=== PATIENT | male | born 1965 | race Caucasian/White ===

== ENCOUNTER 2020-11-15 12:05 | Observation (INO) ==
[2020-11-15] MEDS ORDERED: ONDANSETRON INJ 2 MG/ML 2 ML VIAL IV STA (12:41)
[2020-11-15] MEDS ORDERED: SODIUM CHLORIDE 0.9% 1000ML 1,000 ML IV STA (12:41)
[2020-11-15] MEDS ORDERED: MoRPHine SULFATE 4 MG/ML 1 ML CARP\\VIAL IV STA (12:41)
--- NOTE | 2020-11-15 12:46 | Emergency Department Note ---
Impression & Plan Acute appendicitis ED Provider Note CHIEF COMPLAINT: Right-sided abdominal pain HISTORY OF PRESENTING ILLNESS: This is a 55-year-old male who presents to the emergency department by private vehicle with complaint of right lower abdominal pain that started yesterday and has gotten progressively worse. Patient states the pain feels like a dull ache, is constant, worse with movement and better with rest, and he rates the pain 8/10. He tried taking Pepcid AC last night but that did not help his symptoms. He has not tried anything else for the pain. Patient has had some associated nausea and a poor appetite, but has not vomited. He last ate solid food yesterday around dinnertime, he has only had a few sips of Gatorade today. He denies any fevers or chills. He has not had any diar mily, constipation, bloody or black stools and denies any urinary complaints. He denies any history of abdominal surgeries in the past. He denies any chest pain, chest tightness, shortness of breath, palpitations, dizziness or syncope, back pain. REVIEW OF SYSTEMS: A complete 10 point review of systems was reviewed with the patient with pertinent positives and negatives as per history of present illness. All else were negative. PAST MEDICAL HISTORY: No past medical or surgical history SOCIAL HISTORY: Lives at home, he is a current every day smoker, admits to some alcohol and occasional marijuana ALLERGIES: No known allergies PHYSICAL EXAM: CONSTITUTIONAL: Pleasant and cooperative. Nontoxic-appearing and in no acute distress. Mildly dehydrated, but otherwise well appearing and well nourished. HEENT: Normocephalic, atraumatic. Pharynx normal. Tacky mucous membranes. NECK: Supple, full active range of motion without discomfort. RESPIRATORY: Clear to auscultation bilaterally with no wheezing, crackles, rhonchi or stridor. Equal expansion bilaterally. CARDIOVASCULAR: Regular rate and rhythm with no murmurs, rubs or gallops. Normal peripheral perfusion. No edema. GASTROINTESTINAL: Tender to palpation in the right mid to lower abdomen, slight guarding, but no rebound tenderness. The abdomen is otherwise nontender, soft and nondistended. No palpable masses or HSM. Bowel sounds present in all quadrants. No CVA tenderness bilaterally. MUSCULOSKELETAL: Full range of motion of all joints without discomfort. INTEGUMENTARY: No rash or other significant dermatologic conditions noted. NEUROLOGIC: Alert and oriented X 4 with normal affect. Normal strength and sensation in all 4 extremities. Normal speech. Normal gait observed. ED COURSE AND MEDICAL DECISION MAKING: CC: Patient presenting with complaint of right-sided abdominal pain DIFFERENTIAL DIAGNOSIS: Includes, but not limited to appendicitis, infections, diverticulitis, UTI, small bowel obstruction, mesenteric ischemia, aortic pathology, inflammatory bowel disease, renal colic, PUD, pancreatitis, biliary pathology, hernia, volvulus, constipation, as well as other pathologies. INTERPRETATION OF LABS: Leukocytosis, no anemia, normal platelets, no significant electrolyte abnormalities, normal renal function, mildly elevated total bili, otherwise normal liver enzymes and lipase. MEDICATION RECONCILIATION: I attest that I have personally reviewed the patient's current medication list. INITIAL VITAL SIGNS REVIEW: I reviewed the patient's initial vital signs and interpret them as follows: T: Afebrile; BP: Normotensive; HR: Within normal limits; RR: Within normal limits; Pulse Ox: Within normal limits on room air. MDM SUMMARY: Patient was evaluated at bedside, history and physical exam performed. Patient is alert and oriented, in no acute distress, resting calmly in stretcher. He is afebrile and nontoxic-appearing, but does appear uncomfortable from pain. Abdomen is tender to palpation in the right mid and lower abdomen with slight guarding, but no acute abdomen. Cardiac monitoring: An order was placed for continuous cardiac monitoring. The monitor shows a rate of 92 bpm with normal sinus rhythm. The patient does note that he has been on chronic narcotics for back problems in the past, but states he does not take anything currently. He has had morphine before. Orders were placed labs, UA, IV fluid bolus for hydration, IV morphine for pain, IV Zofran for nausea, CT abdomen/pelvis with IV and oral contrast to evaluate for abdominal pain. Patient discussed with Dr. Torre, who agrees with my assessment, plan, and disposition. Labs and imaging reviewed as above, labs are notable for leukocytosis, no other significant lab abnormalities. No UTI. Nursing staff called me notifying that the patient became very anxious and is complaining of pain all over shortly after receiving the IV morphine. I evaluated the patient at bedside, he states that his "whole body feels like it is in a cramp" and he is also more nauseated and has vomited a few times. I doubt an allergic reaction, given that the patient has received this medication in the past, however I did give the patient IV Benadryl 50 mg as a precaution. The patient was reassessed and monitored closely, and he did report improvement in his symptoms and appears more comfortable. Given the increase in nausea and vomiting, I did change the CT imaging study to IV contrast only. CT imaging was reviewed and notable for severe acute appendicitis with surrounding fluid and suspicious for perforation. There was no abscess seen. I did cover the patient empirically with 4.5 g of IV Zosyn given the suspected perforation. COVID-19 testing was ordered. I spoke on the phone with Miguel Aviles PA-C with general surgery, who agrees to evaluate the patient and he will most likely go to the OR. Patient reassessed multiple times throughout ED stay, he has remained hemodynamically stable and afebrile, he continues to appear comfortable and notes that his pain is significantly improved. The patient was updated on all results and plan for surgery, all questions were answered to the best of my ability and the patient was agreeable to this plan. The patient was stable at time of admission for surgery. The chart was completed utilizing [employer] Speech voice recognition software. Grammatical errors, random word insertions, pronoun errors, and incomplete sentences are an occasional consequence of this system due to software limitations, ambient noise, and hardware issues. Any formal questions or concerns about the content, text, or information contained within the body of this dictation should be directly addressed to the nurse practitioner for clarification. Past Med/Surg History Medical History (Updated 11/15/20 @ 15:38 by Matteo Price DO, FACS) Acute appendicitis with localized peritonitis Bulging disc LUMBAR SPINE Hx of colonic polyp Surgical History History of colonoscopy History of tooth extraction Family History Mother Family history of diabetes mellitus Denies family history of Ovarian cancer Prostate cancer Myocardial infarction Breast cancer Colorectal cancer Social History Smoking Status: Former smoker Second Hand Exposure: No; Hx Alcohol Use: Yes Alcohol type: hard liquor Hx Substance Use: Yes Last Used Substance Other:: LAST USED LAST WEEKEND (ADVISED) Preferred Language: Swedish Visual Impairment: No Limitations Hearing Ability: Normal [employer] Director Required: No Beliefs That Will Affect Care: None marital status: Current Living Situation: Spouse current occupational status: employed Feels Safe at Home: Yes Dental Care, Regularly: Yes Physical Activity Frequency: 1-2 Times per Week Seatbelt Use: always Assistive Devices: Glasses Allergies Allergies Allergy/AdvReac Type Severity Reaction Status Date / Time No Known Allergies Allergy Verified 11/15/20 08:17 Home Meds Home Medications Medication Instructions Recorded Confirmed Herbal Pill 1 tab PO DAILY 11/15/20 11/15/20 Results & Data (ED) Vital Signs Vital Signs - 24 hr 11/15/20 12:08 11/15/20 12:47 11/15/20 13:00 Temperature 36.8 C Temperature Source Temporal Artery Scan Pulse Rate 94 H 63 92 H Pulse Rate from SpO2 Sensor 91 H 89 Pulse Rhythm Respiratory Rate 18 22 20 Blood Pressure 107/74 127/78 127/74 Blood Pressure Mean 85 94 91 Pulse Oximetry 95 93 94 Oxygen Delivery Method Room Air Sepsis Recent Fever Within 48 Hours No Sepsis New/Unexplained Change in Mental Status N/A Sepsis Action Taken by Nursing No Action Required 11/15/20 13:01 11/15/20 13:30 11/15/20 14:00 Temperature Temperature Source Pulse Rate 90 113 H 106 H Pulse Rate from SpO2 Sensor Pulse Rhythm Regular Respiratory Rate 20 33 H 29 H Blood Pressure 127/83 105/72 Blood Pressure Mean 97 83 Pulse Oximetry 94 Oxygen Delivery Method Room Air Sepsis Recent Fever Within 48 Hours Sepsis New/Unexplained Change in Mental Status Sepsis Action Taken by Nursing 11/15/20 14:30 11/15/20 15:00 11/15/20 15:30 Temperature Temperature Source Pulse Rate 100 H 100 H Pulse Rate from SpO2 Sensor 100 H 101 H Pulse Rhythm Respiratory Rate 37 H 27 H Blood Pressure 132/70 127/73 120/72 Blood Pressure Mean 90 91 88 Pulse Oximetry 91 93 Oxygen Delivery Method Sepsis Recent Fever Within 48 Hours Sepsis New/Unexplained Change in Mental Status Sepsis Action Taken by Nursing Laboratory Data Result diagrams: 11/15/20 12:48 11/15/20 12:48 Lab Results 11/15/20 11/15/20 11/15/20 Range/Units 12:48 12:48 14:53 WBC 15.69 H (4.8-10.8) K/uL RBC 4.80 (4.7-6.1) M/uL Hgb 15.6 (14.0-18.0) g/dL Hct 44.6 (42-52) % MCV 92.9 (80-100) fL MCH 32.5 (25-34) pg MCHC 35.0 (32-36) g/dL RDW Std Deviation 46.1 (36.4-46.3) fL RDW Coeff of Jeuss 13.5 (11.5-14.5) % Plt Count 289 (130-400) K/uL MPV 9.4 (7.4-10.4) fL Immature Gran % (Auto) 0.2 % Neut % (Auto) 84.4 % Lymph % (Auto) 7.6 % Otero % (Auto) 7.5 % Eos % (Auto) 0.2 % Baso % (Auto) 0.1 % Neut # (Auto) 13.25 H (1.4-6.5) K/uL Lymph # (Auto) 1.19 L (1.2-3.4) K/uL Otero # (Auto) 1.17 H (0.11-0.59) K/uL Eos # (Auto) 0.03 (0-0.5) K/uL Baso # (Auto) 0.02 (0-0.2) K/uL Immature Gran # (Auto) 0.03 H (0.00-0.02) K/uL Sodium 136 (136-145) mmol/L Potassium 3.9 (3.5-5.1) mmol/L Chloride 104 (98-107) mmol/L Carbon Dioxide 25 (21-32) mmol/L Anion Gap 7.0 (3-11) BUN 14 (7-18) mg/dl Creatinine 0.88 (0.6-1.4) mg/dl Est Cr Clr Drug Dosing 79.5 ml/min Est GFR ( Amer) 111.3 ml/min Est GFR (Non-Af Amer) 96.0 ml/min BUN/Creatinine Ratio 16.2 (10-20) Glucose 120 H (70-99) mg/dl Calcium 9.3 (8.5-10.1) mg/dl Total Bilirubin 1.2 H (0.2-1) mg/dl AST 6 L (15-37) U/L ALT 20 (12-78) U/L Alkaline Phosphatase 62 (45-117) U/L Total Protein 7.5 (6.4-8.2) gm/dl Albumin 3.7 (3.4-5.0) gm/dl Globulin 3.8 (2.5-4.0) gm/dl Albumin/Globulin Ratio 1.0 (0.9-2) Lipase 73 (73-393) U/L COVID-19 Eval Order Covid19 at [facility] Administered Medications Discontinued Medications Diphenhydramine HCl (Diphenhydramine 50 Mg/Ml Vial) Confirm Administered Dose 50 mg .ROUTE .STK-MED ONE Stop: 11/15/20 13:19 Last Admin: 11/15/20 13:20 Dose: 50 mg Documented by: [id number] Diphenhydramine HCl (Diphenhydramine 50 Mg/Ml Vial) 50 mg IV NOW STA Stop: 11/15/20 13:37 Last Admin: 11/15/20 13:40 Dose: Not Given Documented by: [id number] Sodium Chloride (Nss 1000ml) 1,000 mls @ 999 mls/hr IV .Q1H1M STA Stop: 11/15/20 13:41 Last Infusion: 11/15/20 14:49 Dose: 0 mls/hr Documented by: [id number] Admin: 11/15/20 12:57 Dose: 999 mls/hr Documented by: [id number] Piperacillin Sod/Tazobactam Sod (Zosyn) 4.5 gm in 120 mls @ 240 mls/hr IV NOW ONE Stop: 11/15/20 15:07 Last Admin: 11/15/20 14:47 Dose: 240 mls/hr Documented by: [id number] Ioversol (Optiray 320 100ml) 90 ml IV ONCE ONE Stop: 11/15/20 14:09 Last Admin: 11/15/20 14:08 Dose: 90 ml Documented by: [id number] Morphine Sulfate (Morphine Sulfate 4 Mg/Ml 1 Ml Carp\\Vial) 4 mg IV NOW STA Stop: 11/15/20 12:42 Last Admin: 11/15/20 12:59 Dose: 4 mg Documented by: [id number] Ondansetron HCl (Ondansetron Inj 2 Mg/Ml 2 Ml Vial) 4 mg IV NOW STA Stop: 11/15/20 12:42 Last Admin: 11/15/20 12:58 Dose: 4 mg Documented by: [id number] Imaging Data Radiologist's Impression: Abdomen/Pelvis CT 11/15/20 13:36 CT SCAN OF THE ABDOMEN AND PELVIS WITH IV CONTRAST CLINICAL HISTORY: Right lower quadrant abdominal pain. COMPARISON STUDY: Ultrasound of the right lower quadrant performed the same day 11/15/2020. TECHNIQUE: Following the IV administration of 90 cc of Optiray 320, CT scan of the abdomen and pelvis is performed from the lung bases to the proximal femora. Images are reviewed in the axial, sagittal, and coronal planes. IV contrast was administered without complication. A dose lowering technique was utilized adhering to the principles of ALARA. CT DOSE: 272.10 mGy.cm FINDINGS: Lung bases: The heart is normal in size and without pericardial effusion. The lung bases are clear noting dependent atelectasis. Liver: The contrast-enhanced liver is normal in size, contour, and attenuation. There is no intrahepatic biliary ductal dilatation. The hepatic veins and portal veins are patent. Gallbladder: Unremarkable. Spleen: Normal in size and attenuation. Pancreas: Unremarkable. Adrenal glands: Unremarkable. Kidneys: The contrast enhanced kidneys are normal in size and without hydronephrosis. The kidneys enhance symmetrically. 8 retroverted left renal vein is incidentally noted. A 9 mm cyst is noted in the left lower pole. Abdominal vasculature: The abdominal aorta is normal in course and caliber noting mild atherosclerotic calcification. Bowel: There is mild colonic fecal retention. No bowel obstruction is seen. There are scattered colonic diverticula without CT evidence of acute diverticul itis. The appendix is retrocecal in location. There are large calcified appendicoliths seen on images #221, #226, and #242. The appendix is dilated and fluid-filled measuring up to 1.5 cm in diameter. There are significant surrounding periappendiceal inflammation and fluid, and the appearance is co nsistent with severe acute appendicitis. Apparent discontinuity of the posterior wall of the appendix suggests perforation. No organized fluid collection is seen to suggest abscess. Peritoneum: Free fluid is seen in the right lower quadrant and tracking along the right paracolic gutter. No intraperitoneal free air is identified. Lymphadenopathy: None. Pelvic viscera: The prostate gland is mildly enlarged noting median lobe hypertrophy. The bladder and seminal vesicles are normal as imaged. Skeletal structures: There is mild lumbosacral spondylosis. No lytic or blastic lesions are seen. IMPRESSION: 1. Findings are consistent with severe acute appendicitis with surrounding fluid. 2. Suspect perforation. No organized/drainable fluid collection identified to indicate abscess. 3. Additional findings as above. ACT 112: Negative or not required by law. Electronically signed by: Yan Oahra M.D. 11/15/2020 2:21 PM Discharge Plan Visit Data Chief Complaint: Abdominal Pain Stated Complaint: STOMACH PAIN ED Provider: Yan Torre ED Midlevel Provider: Natalia Reese Discharge Problem: Acute appendicitis Patient Disposition: Admitted As Inpatient Condition: Good Forms Stand Alone Forms: [employer] Prescriptions Prescriptions: No Action Herbal Pill 1 tab PO DAILY RF: 0 Referrals Referrals: PCP,NO [Primary Care Provider] - Discharge Problem: Acute appendicitis Qualifiers: Acute appendicitis type: with localized peritonitis Appendicitis perforation presence: with perforation Appendicitis abscess presence: without abscess
[2020-11-15 13:11] LABS: Basophils # (auto) 0.02 K/uL (0-0.2); Basophils % (auto) 0.1 %; Eosinophils # (auto) 0.03 K/uL (0-0.5); Eosinophils % (auto) 0.2 %; Hematocrit (blood only) 44.6 % (42-52); Hemoglobin 15.6 g/dL (14.0-18.0); Immature Granulocytes # (auto) 0.03 K/uL (0.00-0.02); Immature Granulocytes % (auto) 0.2 %; Lymphocytes # (auto) 1.19 K/uL (1.2-3.4); Lymphocytes % (auto) 7.6 %; Mean Corpuscular Hemoglobin 32.5 pg (25-34); Mean Corpuscular Volume 92.9 fL (80-100); Mean Platelet Volume 9.4 fL (7.4-10.4); Monocytes # (auto) 1.17 K/uL (0.11-0.59); Monocytes % (auto) 7.5 %; Neutrophils # (auto) 13.25 K/uL (1.4-6.5); Neutrophils % (auto) 84.4 %; Platelet Count 289 K/uL (130-400); RDW Coefficient of Variation 13.5 % (11.5-14.5); RDW Standard Deviation 46.1 fL (36.4-46.3); White Blood Count 15.69 K/uL (4.8-10.8)
[2020-11-15] MEDS ORDERED: diphenhydrAMINE 50 MG/ML VIAL ONE (13:18)
[2020-11-15 13:34] LABS: Albumin Level 3.7 gm/dl (3.4-5.0); BUN Creatinine Ratio 16.2 (10-20); Bilirubin,Total 1.2 mg/dl (0.2-1); Calcium 9.3 mg/dl (8.5-10.1); Creatinine Clr Calc Pharmacy 79.5 ml/min; Est GFR (African American) 111.3 ml/min; Globulin 3.8 gm/dl (2.5-4.0); Potassium 3.9 mmol/L (3.5-5.1); Total Protein 7.5 gm/dl (6.4-8.2)
[2020-11-15] MEDS ORDERED: diphenhydrAMINE 50 MG/ML VIAL IV STA (13:36)
[2020-11-15] MEDS ORDERED: OPTIRAY 320 100ml IV ONE (14:08)
--- NOTE | 2020-11-15 14:23 | CT Scan Report ---
CT SCAN OF THE ABDOMEN AND PELVIS WITH IV CONTRAST CLINICAL HISTORY: Right lower quadrant abdominal pain. COMPARISON STUDY: Ultrasound of the right lower quadrant performed the same day 11/15/2020. TECHNIQUE: Following the IV administration of 90 cc of Optiray 320, CT scan of the abdomen and pelvi s is performed from the lung bases to the proximal femora. Images are reviewed in the axial, sagittal , and coronal planes. IV contrast was administered without complication. A dose lowering technique wa s utilized adhering to the principles of ALARA. CT DOSE: 272.10 mGy.cm FINDINGS: Lung bases: The heart is normal in size and without pericardial effusion. The lung bases are clear no ting dependent atelectasis. Liver: The contrast-enhanced liver is normal in size, contour, and attenuation. There is no intrahepa tic biliary ductal dilatation. The hepatic veins and portal veins are patent. Gallbladder: Unremarkable. Spleen: Normal in size and attenuation. Pancreas: Unremarkable. Adrenal glands: Unremarkable. Kidneys: The contrast enhanced kidneys are normal in size and without hydronephrosis. The kidneys enh ance symmetrically. 8 retroverted left renal vein is incidentally noted. A 9 mm cyst is noted in the left lower pole. Abdominal vasculature: The abdominal aorta is normal in course and caliber noting mild atheroscleroti c calcification. Bowel: There is mild colonic fecal retention. No bowel obstruction is seen. There are scattered colon ic diverticula without CT evidence of acute diverticulitis. The appendix is retrocecal in location. There are large calcified appendicoliths seen on images #221, #226, and #242. The appendix is dilated and fluid-filled measuring up to 1.5 cm in diameter. There are significant surrounding periappendice al inflammation and fluid, and the appearance is consistent with severe acute appendicitis. Apparent discontinuity of the posterior wall of the appendix suggests perforation. No organized fluid collecti on is seen to suggest abscess. Peritoneum: Free fluid is seen in the right lower quadrant and tracking along the right paracolic gut ter. No intraperitoneal free air is identified. Lymphadenopathy: None. Pelvic viscera: The prostate gland is mildly enlarged noting median lobe hypertrophy. The bladder and seminal vesicles are normal as imaged. Skeletal structures: There is mild lumbosacral spondylosis. No lytic or blastic lesions are seen. IMPRESSION: 1. Findings are consistent with severe acute appendicitis with surrounding fluid. 2. Suspect perforation. No organized/drainable fluid collection identified to indicate abscess. 3. Additional findings as above. ACT 112: Negative or not required by law. Electronically signed by: Yan Ohara M.D. 11/15/2020 2:21 PM
[2020-11-15] MEDS ORDERED: PIPERACILL/TAZOBAC CONSULT ACTIVE PRN ×2 (14:38→18:36)
[2020-11-15] MEDS ORDERED: PIPERACILLIN/TAZOBACTAM 4.5 GM/120 ML BAG IV ONE (14:38)
--- NOTE | 2020-11-15 15:18 | Anesthesiology Consultation ---
Date of Service November 15, 2020 Assessment & Plan (1) Encounter for pre-operative examination: Chart Review Chart Review: Acceptable Risk for Surgery History Surgery Operation Date: 11/15/20 10:50 Proposed Procedures p Laparoscopic Appendectomy - Matteo Price DO, FACS Height/Weight Height: 5 ft 7 in Weight: 60 kg Allergies Allergy/AdvReac Type Severity Reaction Status Date / Time No Known Allergies Allergy Verified 11/15/20 08:17 Medications Home Medications Medication Instructions Recorded Confirmed Last Taken Herbal Pill 1 tab PO DAILY 11/15/20 11/15/20 Unknown Past Medical History Medical History Bulging disc LUMBAR SPINE Hx of colonic polyp Past Family History Family History Mother Family history of diabetes mellitus Denies family history of Ovarian cancer Prostate cancer Myocardial infarction Breast cancer Colorectal cancer Past Surgical History Surgical History History of colonoscopy History of tooth extraction Social History Smoking Status: Former smoker tobacco type: cigarettes Hx Alcohol Use: Yes Alcohol type: hard liquor alcohol intake frequency: a few times a month Hx Substance Use: Yes substance use type: marijuana Last Used Substance Other:: LAST USED LAST WEEKEND (ADVISED) Physical Exam Vital Signs Last Vital Signs Temp 36.8 C 11/15/20 12:08 Pulse 106 H 11/15/20 14:00 Resp 29 H 11/15/20 14:00 BP 105/72 11/15/20 14:00 Pulse Ox 94 11/15/20 13:01 Testing Laboratory Results 11/15/20 12:48 11/15/20 12:48
--- NOTE | 2020-11-15 15:42 | History & Physical Report ---
Date of Service November 15, 2020 Assessment & Plan (1) Acute appendicitis with localized peritonitis: Plan: acute appendicitis, possible early perforation Plan for laparoscopic appendectomy, possible open the risks of the procedure were discussed to include bleeding, infection, open surgery, normal appendix, damage to surrounding structures, need for future or more extensive surgery, abscess, and risks of anesthesia pre op abx ordered admit for overnight obs post op, hopeful for discharge tomorrow History of Present Illness Chief Complaint: abd pain Primary Care Provider: NO PCP 55 year old male presented with 24 hours of rlq abdominal pain. Started yesterday and got worse. Some nausea, + anorexia. Last food yesterday, some gatorade this morning. Had similar pain several years ago that went away on own but not this bad. No prior surgery, colonoscopy with benign polyps in past. No blood thinners, no other meds. Allergies Allergy/AdvReac Type Severity Reaction Status Date / Time No Known Allergies Allergy Verified 11/15/20 08:17 Home Medications Medication Instructions Recorded Confirmed Type Herbal Pill 1 tab PO DAILY 11/15/20 11/15/20 History Past Med/Surg History Medical History (Updated 11/15/20 @ 15:38 by Matteo Price DO, FACS) Acute appendicitis with localized peritonitis Bulging disc LUMBAR SPINE Hx of colonic polyp Surgical History History of colonoscopy History of tooth extraction Family History Mother Family history of diabetes mellitus Denies family history of Ovarian cancer Prostate cancer Myocardial infarction Breast cancer Colorectal cancer Social History Smoking Status: Former smoker Second Hand Exposure: No; Hx Alcohol Use: Yes Alcohol type: hard liquor Hx Substance Use: Yes Last Used Substance Other:: LAST USED LAST WEEKEND (ADVISED) Preferred Language: Nigerian Visual Impairment: No Limitations Hearing Ability: Normal Child Welfare Director Required: No Beliefs That Will Affect Care: None marital status: Current Living Situation: Spouse current occupational status: employed Feels Safe at Home: Yes Dental Care, Regularly: Yes Physical Activity Frequency: 1-2 Times per Week Seatbelt Use: always Assistive Devices: Glasses Review of Systems Review of Systems: All systems reviewed & are unremarkable except as noted in HPI & below Physical Exam Constitutional: WD/WN, vitals as above Respiratory: normal respiratory effort, lungs clear to auscultation Cardiovascular: RRR, no murmur, no edema Gastrointestinal (Abdomen): Percussion/Palpation: + abdomen tender (RLQ), + guarding (RLQ localized) and abdomen soft; abdomen not rigid, no hepatosplenomegaly and no hernia Results & Data Results & Data ([facility]) Vital Signs (Past 12 Hours) Vital Signs Temp Pulse Resp BP Pulse Ox 11/15/20 14:00 106 H 29 H 105/72 11/15/20 13:30 113 H 33 H 127/83 11/15/20 13:01 90 20 94 11/15/20 13:00 92 H 20 127/74 94 11/15/20 12:47 63 22 127/78 93 11/15/20 12:08 36.8 C 94 H 18 107/74 95 Laboratory Results Laboratory Results - last 24 hr 11/15/20 11/15/20 11/15/20 12:48 12:48 14:53 WBC 15.69 H RBC 4.80 Hgb 15.6 Hct 44.6 MCV 92.9 MCH 32.5 MCHC 35.0 RDW Std Deviation 46.1 RDW Coeff of Jesus 13.5 Plt Count 289 MPV 9.4 Immature Gran % (Auto) 0.2 Neut % (Auto) 84.4 Lymph % (Auto) 7.6 Pickett % (Auto) 7.5 Eos % (Auto) 0.2 Baso % (Auto) 0.1 Neut # (Auto) 13.25 H Lymph # (Auto) 1.19 L Pickett # (Auto) 1.17 H Eos # (Auto) 0.03 Baso # (Auto) 0.02 Immature Gran # (Auto) 0.03 H Sodium 136 Potassium 3.9 Chloride 104 Carbon Dioxide 25 Anion Gap 7.0 BUN 14 Creatinine 0.88 Est Cr Clr Drug Dosing 79.5 Est GFR ( Amer) 111.3 Est GFR (Non-Af Amer) 96.0 BUN/Creatinine Ratio 16.2 Glucose 120 H Calcium 9.3 Total Bilirubin 1.2 H AST 6 L ALT 20 Alkaline Phosphatase 62 Total Protein 7.5 Albumin 3.7 Globulin 3.8 Albumin/Globulin Ratio 1.0 Lipase 73 COVID-19 Eval Order Covid19 at [facility] SARS-CoV-2 (PCR) 11/15/20 14:53 WBC RBC Hgb Hct MCV MCH MCHC RDW Std Deviation RDW Coeff of Jesus Plt Count MPV Immature Gran % (Auto) Neut % (Auto) Lymph % (Auto) Pickett % (Auto) Eos % (Auto) Baso % (Auto) Neut # (Auto) Lymph # (Auto) Pickett # (Auto) Eos # (Auto) Baso # (Auto) Immature Gran # (Auto) Sodium Potassium Chloride Carbon Dioxide Anion Gap BUN Creatinine Est Cr Clr Drug Dosing Est GFR ( Amer) Est GFR (Non-Af Amer) BUN/Creatinine Ratio Glucose Calcium Total Bilirubin AST ALT Alkaline Phosphatase Total Protein Albumin Globulin Albumin/Globulin Ratio Lipase COVID-19 Eval Order SARS-CoV-2 (PCR) Pending Diagnostic Findings I personally reviewed the CT and agree with read of acute appendicitis, though perforation is questionable. CT SCAN OF THE ABDOMEN AND PELVIS WITH IV CONTRAST CLINICAL HISTORY: Right lower quadrant abdominal pain. COMPARISON STUDY: Ultrasound of the right lower quadrant performed the same day 11/15/2020. TECHNIQUE: Following the IV administration of 90 cc of Optiray 320, CT scan of the abdomen and pelvis is performed from the lung bases to the proximal femora. Images are reviewed in the axial, sagittal, and coronal planes. IV contrast was administered without complication. A dose lowering technique was utilized adhering to the principles of ALARA. CT DOSE: 272.10 mGy.cm FINDINGS: Lung bases: The heart is normal in size and without pericardial effusion. The lung bases are clear noting dependent atelectasis. Liver: The contrast-enhanced liver is normal in size, contour, and attenuation. There is no intrahepatic biliary ductal dilatation. The hepatic veins and portal veins are patent. Gallbladder: Unremarkable. Spleen: Normal in size and attenuation. Pancreas: Unremarkable. Adrenal glands: Unremarkable. Kidneys: The contrast enhanced kidneys are normal in size and without hydronephrosis. The kidneys enhance symmetrically. 8 retroverted left renal vein is incidentally noted. A 9 mm cyst is noted in the left lower pole. Abdominal vasculature: The abdominal aorta is normal in course and caliber noting mild atherosclerotic calcification. Bowel: There is mild colonic fecal retention. No bowel obstruction is seen. There are scattered colonic diverticula without CT evidence of acute diverticulitis. The appendix is retrocecal in location. There are large calcified appendicoliths seen on images #221, #226, and #242. The appendix is dilated and fluid-filled measuring up to 1.5 cm in diameter. There are significant surrounding periappendiceal inflammation and fluid, and the appearance is consistent with severe acute appendicitis. Apparent discontinuity of the posterior wall of the appendix suggests perforation. No organized fluid collection is seen to suggest abscess. Peritoneum: Free fluid is seen in the right lower quadrant and tracking along the right paracolic gutter. No intraperitoneal free air is identified. Lymphadenopathy: None. Pelvic viscera: The prostate gland is mildly enlarged noting median lobe hypertrophy. The bladder and seminal vesicles are normal as imaged. Skeletal structures: There is mild lumbosacral spondylosis. No lytic or blastic lesions are seen. IMPRESSION: 1. Findings are consistent with severe acute appendicitis with surrounding fluid. 2. Suspect perforation. No organized/drainable fluid collection identified to indicate abscess. 3. Additional findings as above. PG Care Time/CCT Total # of Minutes Spent Total Time Spent with Patient: Total time spent is greater than 50% in coordination of care (as documented) at patient's floor/unit and/or counseling patient: Coding Level of Care Code INT OBSERVATION CARE 50M LVL 2 Diagnoses Acute appendicitis with localized peritonitis K35.30
[2020-11-15] MEDS ORDERED: BUPIVACAINE 0.5 % 5 MG/1 ML MPF 30ML VIAL ONE (15:56)
[2020-11-15] MEDS ORDERED: ONDANSETRON INJ 2 MG/ML 2 ML VIAL IV PRN ×2 (16:04→18:36)
[2020-11-15] MEDS ORDERED: ATROPINE SULFATE 0.1 MG/ML 10ML SYR IV PRN (16:04)
[2020-11-15] MEDS ORDERED: fentaNYL citrate 100 MCG/2 ML VIAL IV PRN (16:04)
[2020-11-15] MEDS ORDERED: ePHEDrine sulfate 50 MG/ML AMP IV PRN (16:04)
[2020-11-15] MEDS ORDERED: MEPERIDINE HCL 25 MG/ML CARP/VIAL IV PRN (16:04)
[2020-11-15] MEDS ORDERED: HYDROmorphone INJ 1 MG/ML SYRINGE IV PRN (16:04)
[2020-11-15] MEDS ORDERED: PHENYLEPHRINE 100MCG/ML 5ML SYR IV PRN (16:04)
[2020-11-15] MEDS ORDERED: LABETALOL HCL IV 5 MG/ML 20ML IV PRN (16:04)
[2020-11-15] MEDS ORDERED: DEXAMETHASONE SOD INJ 4 MG/ML VIAL ONE (16:08)
[2020-11-15] MEDS ORDERED: LIDOCAINE 2% 2 ML VIAL/AMP(20MG/ML) INFIL ONE (16:08)
[2020-11-15] MEDS ORDERED: NEOSTIGMINE METHYLSULFATE 1 MG/ML 10ML VIAL ONE (16:08)
[2020-11-15] MEDS ORDERED: GLYCOPYRROLATE 0.2 MG/ML VIAL ONE (16:09)
[2020-11-15] MEDS ORDERED: PROPOFOL IV EMULSION 10 MG/ML 20 ML VIAL IV ONE (16:09)
[2020-11-15] MEDS ORDERED: fentaNYL citrate 100 MCG/2 ML VIAL ONE (16:09)
[2020-11-15] MEDS ORDERED: MIDAZOLAM HCL 1 MG/ML 2ML VIAL ONE (16:09)
[2020-11-15] MEDS ORDERED: ROCURONIUM BROMIDE 10 MG/ML 5 ML VIAL IV ONE ×3 (16:09→16:59)
[2020-11-15] MEDS ORDERED: ONDANSETRON INJ 2 MG/ML 2 ML VIAL ONE (16:09)
[2020-11-15] MEDS ORDERED: PHENYLEPHRINE 100MCG/ML 5ML SYR ONE (16:59)
--- NOTE | 2020-11-15 17:35 | Operative Report ---
PG Post Operative Report Pre & Post Diagnosis Operation Date: 11/15/20 10:50 Pre-Op Diagnosis: appendicitis Post-Op Diagnosis: gangrenous appendicitis I identified the patient and participated in the time-out.: Yes Procedure Operation Date: 11/15/20 10:50 Actual Procedures p Laparoscopic Appendectomy(Not Applicable) - Matteo Price DO, FACS Surgeon Matteo Price DO, FACS Lace Mender Marquise Aviles Estimated Blood Loss 5 Findings Consistent with Post-Op Diagnosis Acute gangrenous appendicitis, no evidence of gross perforation. Good hemostasis. Specimens Appendix Anesthesia Type General Complications none Disposition Accompanied Patient To Recovery: No Disposition: Recovery Room Indications 55-year-old male with signs symptoms of acute appendicitis, question of possible perforation on CT imaging, plan for laparoscopic appendectomy, possible open. The risks of the procedure were discussed, all questions were answered, and the patient agreed to proceed with surgery as planned. Description of Procedure The patient was properly identified, consented, and taken to the operating room where he was placed in the supine position. General endotracheal anesthesia was induced. SCDs and a safety belt were placed. Preoperative antibiotics were administered. A Alcala catheter was not placed. The patient's abdomen was prepped and draped in the standard sterile fashion. Surgical timeout was performed and all parties were in agreement that this was the correct patient and procedure to be performed and we continued as planned. A curvilinear infraumbilical incision was made with electrocautery and deepened down to the fascia with blunt dissection. The base of the umbilicus was grasped with a Ned and elevated towards the ceiling. An incision was made in the midline fascia with a knife and entry into the peritoneum was confirmed. Stay suture of 0 Vicryl was placed and a Snyder trocar was inserted. The abdomen was insufflated with carbon dioxide which the patient tolerated without incident. The laparoscope was inserted and no damage from initial trocar placement was noted, no gross abnormalities were noted within the 4 quadrants the abdomen. 5 mm ports were then placed in the left lower quadrant with care not to damage the epigastric vessels, and in the suprapubic midline with care not to damage the bladder. The patient was placed in Trendelenburg position and rotated towards the left. The small bowel was swept away from the right lower quadrant. The cecum was grasped with an atraumatic grasper exposing the appendix. The appendix was significantly inflamed and there was no evidence of gross perforation. There was a small amount of reactive fluid in the pelvis. The appendix appeared to be gangrenous along the posterior wall. A window was created between the base of the appendix and the mesoappendix. A drummond loaded endoscopic stapler was then used to divide the appendix at its base. A drummond load was then used to divide the mesoappendix. Hemostasis was good. The appendix was placed in an Endo Catch bag and removed through the umbilical port site. The right lower quadrant and pelvis was irrigated and hemostasis was found to be good. 5 mm trochars were removed under direct visualization and the abdomen was allowed to collapse. The umbilical port site fascia was closed with 0 Vicryl suture. The wound was irrigated, and the skin of all ports was closed with 4-0 Monocryl subcuticular sutures. Dermabond was placed over the wounds. The patient was extubated in the operating room and taken to the PACU where he recovered without apparent incident. All sponge, instrument and needle counts were correct at the conclusion of the procedure. The patient tolerated the pr ocedure well. The physician's geriatric nursing assistant was present and scrubbed for the entire the case. He was critical in positioning the patient, prepping and draping, retraction and exposure, driving the laparoscope, closure the incisions, placement of the dressings. I attest to the content of the Intraoperative Record and any orders documented therein. Any exceptions are noted below.
--- NOTE | 2020-11-15 17:47 | Electrocardiogram Report ---
Test Reason : Blood Pressure : / mmHG Vent. Rate : 102 BPM Atrial Rate : 102 BPM P-R Int : 140 ms QRS Dur : 088 ms QT Int : 344 ms P-R-T Axes : 043 082 044 degrees QTc Int : 448 ms Sinus tachycardia Nonspecific ST abnormality Otherwise normal ECG No previous ECGs available Confirmed by Kvng Marino ([id number]) on 11/15/2020 5:47:07 PM Referred By: REFERRED SELF Confirmed By:Javier Marino
--- NOTE | 2020-11-15 18:08 | Anesthesiology Progress Note ---
Date of Service November 15, 2020 Anesthesia Post Procedure Vital Signs Vital Signs: Temp Pulse Pulse Pulse Resp BP BP 11/15/20 18:05 37.4 C 83 18 11/15/20 17:55 88 20 11/15/20 17:46 36.7 C 83 22 11/15/20 16:25 36.7 C 103 H 16 112/66 11/15/20 16:00 99 H 25 H 114/67 11/15/20 15:30 120/72 11/15/20 15:00 100 H 27 H 127/73 11/15/20 14:30 100 H 37 H 132/70 11/15/20 14:00 106 H 29 H 105/72 11/15/20 13:30 113 H 33 H 127/83 11/15/20 13:01 90 20 11/15/20 13:00 92 H 20 127/74 11/15/20 12:47 63 22 127/78 11/15/20 12:08 36.8 C 94 H 18 107/74 BP Pulse Ox 11/15/20 18:05 115/71 96 11/15/20 17:55 118/75 100 11/15/20 17:46 138/83 99 11/15/20 16:25 98 11/15/20 16:00 93 11/15/20 15:30 11/15/20 15:00 93 11/15/20 14:30 91 11/15/20 14:00 11/15/20 13:30 11/15/20 13:01 94 11/15/20 13:00 94 11/15/20 12:47 93 11/15/20 12:08 95 Pain Intensity Abdomen: Pain Intensity: 2 Transfer of Care Handoff Completed per policy Notes Mental Status: alert / awake / arousable Patient Amnestic to Procedure: Yes Nausea / Vomiting: adequately controlled Pain: adequately controlled Airway Patency, RR, SpO2: stable & adequate BP & HR: stable & adequate Hydration State: stable & adequate Anesthetic Complications: no major complications apparent and Pt Satisfied with anesthetic care
[2020-11-15] MEDS ORDERED: MoRPHine SULFATE 4 MG/ML 1 ML CARP\\VIAL IV PRN (18:36)
[2020-11-15] MEDS ORDERED: MoRPHine SULFATE 2 MG/ML CARP IV PRN (18:36)
[2020-11-15] MEDS ORDERED: oxyCODONE/ACETAMINOPHEN 5mg/325mg TAB PO PRN (18:36)
[2020-11-15] MEDS: LACTATED RINGER'S 1,000 ML IV SCH (19:52)
[2020-11-15] MEDS: PIPERACILLIN/TAZOBACTAM 3.375 GM in DEXTROSE 5% 100 ML IV SCH (20:57)
[2020-11-15] MEDS: oxyCODONE/ACETAMINOPHEN 5mg/325mg TAB PO PRN (20:58)
[2020-11-16] MEDS: LACTATED RINGER'S 1,000 ML IV SCH ×2 (00:17→10:10)
[2020-11-16 02:05] LABS: Appearance Urine Clear (Clear); Bacteria Urine Automated Negative (Negative); Bilirubin Urine Negative (Negative); Blood Urine 2+ (Negative); Cast Urine Automated 0 /lpf (0-5); Color Urine Yellow; Glucose Urine UA Trace (Negative); Ketones Urine Negative (Negative); Leukocyte Esterase Urine Negative (Negative); Nitrite Urine Negative (Negative); Protein Urine Negative (Negative); Specific Gravity Urine 1.015 (1.000-1.030); Urobilinogen Urine Negative (Negative)
[2020-11-16] MEDS: PIPERACILLIN/TAZOBACTAM 3.375 GM in DEXTROSE 5% 100 ML IV SCH ×2 (04:53→12:03)
[2020-11-16] MEDS: oxyCODONE/ACETAMINOPHEN 5mg/325mg TAB PO PRN ×3 (04:59→10:11)
[2020-11-16 07:47] LABS: Basophils # (auto) 0.02 K/uL (0-0.2); Basophils % (auto) 0.1 %; Hematocrit (blood only) 38.3 % (42-52); Hemoglobin 13.1 g/dL (14.0-18.0); Immature Granulocytes # (auto) 0.04 K/uL (0.00-0.02); Immature Granulocytes % (auto) 0.2 %; Lymphocytes # (auto) 0.93 K/uL (1.2-3.4); Lymphocytes % (auto) 4.9 %; Mean Corpuscular Hemoglobin 32.2 pg (25-34); Mean Corpuscular Hgb Conc 34.2 g/dL (32-36); Mean Corpuscular Volume 94.1 fL (80-100); Mean Platelet Volume 9.1 fL (7.4-10.4); Monocytes # (auto) 0.89 K/uL (0.11-0.59); Monocytes % (auto) 4.7 %; Neutrophils # (auto) 17.03 K/uL (1.4-6.5); Neutrophils % (auto) 90.1 %; Platelet Count 225 K/uL (130-400); Red Blood Count 4.07 M/uL (4.7-6.1); White Blood Count 18.91 K/uL (4.8-10.8)
[2020-11-16 08:08] LABS: BUN Creatinine Ratio 18.1 (10-20); Calcium 8.5 mg/dl (8.5-10.1); Est GFR (African American) 97.1 ml/min; Est GFR (Non-African American) 83.8 ml/min; Potassium 4.1 mmol/L (3.5-5.1)
--- NOTE | 2020-11-16 11:44 | Surgery Progress Note ---
Date of Service November 16, 2020 Assessment & Plan (1) History of appendectomy: Plan: POD#1 lap appy for gangrenous appendicitis, doing well. wbc up slightly post op. will send home on abx advance to regular diet 1 weeks augmentin po pain meds at d/c d/c to home if tolerates lunch f/u in 2 weeks in gen surg clinic activity restrictions, wound care instructions reviewed return precautions given Admission and Anticipated Discharge Date Admission Date: November 15, 2020 Subjective POD#1 lap appendectomy for gangrenous appendicitis, doing well. fells much better, some soreness controlled with meds. tolerated liquids and wants to eat. Physical Exam Constitutional: WD/WN, vitals as above Gastrointestinal (Abdomen): normal bowel sounds, soft, nontender, no hepatosplenomegaly Inspection/Auscultation: + abdominal surgical incision (no infection) Results & Data ([facility]) Vital Signs (Past 12 Hours) Vital Signs Temp Pulse Pulse Resp BP BP Pulse Ox 11/16/20 07:34 36.4 C L 61 20 90/59 L 94 11/16/20 02:35 36.7 C 68 16 96/55 L 97 PG Care Time/CCT Total # of Minutes Spent Total Time Spent with Patient: Total time spent is greater than 50% in coordination of care (as documented) at patient's floor/unit and/or counseling patient: Coding Level of Care Code None Diagnoses History of appendectomy Z90.49
--- NOTE | 2020-11-18 11:50 | Discharge Summary ---
Date of Service November 18, 2020 Admission HPI Per Admitting Provider 55 year old male presented with 24 hours of rlq abdominal pain. Started yesterday and got worse. Some nausea, + anorexia. Last food yesterday, some gatorade this morning. Had similar pain several years ago that went away on own but not this bad. No prior surgery, colonoscopy with benign polyps in past. No blood thinners, no other meds. Principal Diagnosis Acute appendicitis Discharge Exam Constitutional WD/WN, vitals as above Gastrointestinal (Abdomen) Inspection/Auscultation: + abdominal surgical incision (dry); abdomen not distended Percussion/Palpation: abdomen soft Discharge Data Allergies Allergy/AdvReac Type Severity Reaction Status Date / Time No Known Allergies Allergy Verified 11/15/20 08:17 Consultations 11/15/20 15:07 ED Decision to Admit Stat Procedures Performed Operation Date: 11/15/20 10:50 Actual Procedures p Laparoscopic Appendectomy(Not Applicable) - Matteo Price DO, FACS Ordered Studies 11/15/20 13:36 CT abd pelvis IV con only Stat Hospital Course (1) Acute appendicitis: 55 y/o male presented to the ER with abdominal pain. White count was 15,[address] was consistent with acute appendicitis. He was taken to the operating room for laparoscopic appendectomy and transferred to the surgical floor for overnight observation and IV antibiotics. In the morning he was able to advance diet and tolerate oral analgesics. He was stable for discharge home on oral antibiotics. Total Time Total Time Spent Total Time Spent (In Minutes): 15 Discharge Plan Discharge Items Patient Disposition: Home - Self-Care Reason For Visit: APPENDICITIS Discharge Diagnosis: laparoscopic appendectomy Condition on Discharge: Good Activity: Per Instructions section Lifting: No more than 10 pounds Bathing Comment: may shower; no soaking in tubs/pools Exercise/Sports: Wait until after follow-up appointment Driving/Machine Use: no driving while taking narcotics for pain Non-emergency contact: Surgeon Call non-emergency contact if: you have any medication questions, your symptoms worsen, your pain is not controlled, your pain is worsening, your pain is concerning for you, you have a fever, your temperature is above 101.5, your wound has increased redness, your wound has increased drainage and your wound pain has increased Follow-up/Referrals: Matteo Price DO, FACS [Physician] - (Please call to schedule follow up in clinic within 2 weeks) PCP,NO [Primary Care Provider] - Diet: Regular Addtl Attending Provider Instructions: Addtl Customs Inspector Provider Instructions: You may purchase Ibuprofen over the counter if needed for additional pain control. If you are not requiring the pain medication Percocet for pain you may take plain Tylenol. Do not take Tylenol and Percocet concurrently as they both contain Acetaminophen and you should not exceed more than 3grams of Acetaminop hen within a 24 hour time period. Pending Studies at Discharge: Yes Studies:: surgical pathology Stand-Alone Forms: My [facility] amazingtunes, Smoking Cessation Medications and DC Order Prescriptions: New oxycodone-acetaminophen [Percocet] 5-325 mg tablet 1 - 2 tab PO .q4-6h PRN (Reason: pain, for initial therapy, max 6 tabs per day) Qty: 15 RF: 0 amoxicillin-pot clavulanate [Augmentin] 875-125 mg tablet 1 tab PO Q12H Qty: 14 RF: 0 Continued Herbal Pill 1 tab PO DAILY RF: 0 Discharge Orders: Discharge Order (Routine); Ordered 11/16/20 Ordered By: Isabel Rosa/Other Patient Handouts: Appendectomy Admission Data Admit Date/Time: 11/15/20 17:41 Attending Provider: Matteo Price Admit Provider: Marquise Aviles Jr Primary Care Provider: PCP,NO Other Providers: Matteo Price Other Interventions: Discharge Summary Assessment (RN) Last Done: 11/16/20 11:56 Coding Level of Care Code D/C DAY MANAGEMENT <30 MINS Diagnoses Acute appendicitis K35.80 Acute appendicitis type: with localized peritonitis Appendicitis abscess presence: without abscess Appendicitis perforation presence: with perforation
== END 2020-11-16 12:49 | disposition home or self-care (01) ==
LOC: ED 12:05 → 3N 16:35 → OR 16:35